=== PATIENT | male | born 1965 | race African-American/Black ===

== ENCOUNTER 2017-08-22 04:30 | Emergency (ER) | payer OTHER ==
[~2017-08-22] VITALS: Ht 177.8 cm; Wt 95.4 kg
[2017-08-22 05:34] LABS: CHLORIDE 108 mEq/L (99-109); POTASSIUM 3.8 mEq/L (3.7-5.4); SODIUM 137 mEq/L (136-147)
[2017-08-22 05:36] LABS: GLUCOSE 142 mg/dL (70-99)
[2017-08-22 05:37] LABS: ANION GAP 8 MEQ/L (2-14)
[2017-08-22 05:38] LABS: TOTAL BILIRUBIN 0.6 mg/dL (0.0-1.0)
[2017-08-22 05:39] LABS: ALKALINE PHOSPHATASE 52 IU/L (3-129)
[2017-08-22 05:40] LABS: GFR ESTIMATE (CALCULATED) > 59 mL/min/
[2017-08-22 05:41] LABS: UREA NITROGEN (BUN) 17 mg/dL (9-23)
[2017-08-22 05:43] LABS: LIPASE 35 U/L (1.0-51.0)
[2017-08-22] MEDS ORDERED: FLOMAX0.4 MG PO (05:43)
[2017-08-22] MEDS ORDERED: PERCOCET 5/31 TABLET PO (05:43)
[2017-08-22] MEDS ORDERED: MOTRIN600 MG PO (05:43)
[2017-08-22 05:56] LABS: HEMATOCRIT 41.1 % (38.0-50.0); MCH 29.4 PG (29.0-34.0); MCHC 33.8 G/DL (30.0-36.0); MCV 86.9 FL (86-99); MEAN PLAT.VOLUME 10.4 uM^3 (9.0-12.4); PLATELET COUNT 235 K/uL (156-360); RBC DIS.WIDTH-CV 13.1 % (11.8-14.6); RBC DIS.WIDTH-SD 41.8 % (39-53); RED BLOOD COUNT 4.73 M/uL (4.00-5.50)
[2017-08-22 06:16] LABS: ADD MIUA? YES; BILIRUBIN NEGATIVE; BLOOD LARGE; COLOR YELLOW ((YELLOW)); GLUCOSE (STRIP) NEGATIVE; KETONES NEGATIVE; LEUKOCYTES NEGATIVE; NITRITE NEGATIVE; PROTEIN (STRIP) NEGATIVE; SPECIFIC GRAVITY 1.018 (1.000-1.030); UROBILINOGEN 0.2 MG/DL (0.2-1.0)
[2017-08-22 06:49] LABS: BACTERIA NONE SEEN /HPF; EPITHELIAL CELLS RARE /HPF; MUCUS TRACE /LPF; RED BLOOD CELLS TNTC /HPF (0-5); UCUL ADDED? YES; WHITE BLOOD CELLS 0-5 /HPF (0-5)
[2017-08-22 07:30] VITALS: BP 133/79
== END 2017-08-22 07:40 | disposition home or self-care (01) ==
LOC: EME 04:30
PROVIDERS: Physician Assistant
DX: N20.1 Calculus of ureter (principal); E78.5 Hyperlipidemia, unspecified; I10 Essential (primary) hypertension
CPT/HCPCS: 74176; 80053; 81003; 83690; 85027; 87086; 99281; 99285; J1885; J2270; J2405